=== PATIENT | male | born 1985 | race Caucasian/White ===

== ENCOUNTER 2017-10-09 12:52 | Emergency (ER) | payer MEDICAID ==
[~2017-10-09] VITALS: Ht 154.9 cm; Wt 109.0 kg
[2017-10-09 14:46] LABS: BASOPHILS # (AUTO) 0.02 x10^3/uL (0-0.1); BASOPHILS % (AUTO) 0 % (0-1); EOSINOPHILS # (AUTO) 0.04 x10^3/uL (0-0.4); EOSINOPHILS % (AUTO) 1 % (1-7); LYMPHOCYTES % (AUTO) 28 % (22-44); MD NO; MEAN CORPUSCULAR HEMOGLOBIN 28.9 pg (27.5-34.5); MEAN CORPUSCULAR HGB CONC 33.6 g/dL (33.2-36.2); MEAN CORPUSCULAR VOLUME 85.9 fL (81-97); MEAN PLATELET VOLUME 7.8 fL (7.4-10.4); MONOCYTES # (AUTO) 0.35 x10^3/uL (0.2-0.8); MONOCYTES % (AUTO) 6 % (2-9); NEUTROPHILS # (AUTO) 4.05 x10^3/uL (1.8-6.8); NEUTROPHILS % (AUTO) 66 % (42-75); PLATELET COUNT 271 x10^3/uL (130-400); RED BLOOD COUNT 5.29 x10^6/uL (4.38-5.82); RED CELL DISTRIBUTION WIDTH 13.4 % (9.4-14.8)
[2017-10-09 14:53] LABS: CHLORIDE 105 mmol/L (98-107)
[2017-10-09 14:54] LABS: ALBUMIN 3.8 g/dL (3.4-5.0); ANION GAP 7 mmol/L (5-15); CREATININE 0.87 mg/dL (0.7-1.3)
[2017-10-09 14:58] LABS: TROPONIN I < 0.015 ng/mL (0.000-0.045)
[2017-10-09 16:10] VITALS: BP 118/77
== END 2017-10-09 16:37 | disposition home or self-care (01) ==
LOC: ED 16:31
DX: R07.89 Other chest pain (principal); R00.2 Palpitations
CPT/HCPCS: 36415; 71045; 80048; 82040; 84484; 85025; 93005; 99285

== ENCOUNTER 2017-10-12 19:14 | Emergency (ER) | payer MEDICAID ==
[~2017-10-12] VITALS: Ht 180.3 cm; Wt 110.2 kg
[2017-10-12] MEDS ORDERED: ATEN25TA PO (19:36)
[2017-10-12] MEDS ORDERED: ASPI-496 PO (19:36)
[2017-10-12] MEDS ORDERED: RANI150T23 PO (19:37)
[2017-10-12 19:59] LABS: ALBUMIN 4.2 g/dL (3.4-5.0); ANION GAP 8 mmol/L (5-15); CHLORIDE 103 mmol/L (98-107); CREATININE 0.84 mg/dL (0.7-1.3)
[2017-10-12 20:02] LABS: TROPONIN I < 0.015 ng/mL (0.000-0.045)
[2017-10-12 20:11] LABS: BASOPHILS # (AUTO) 0.03 x10^3/uL (0-0.1); BASOPHILS % (AUTO) 0 % (0-1); EOSINOPHILS # (AUTO) 0.01 x10^3/uL (0-0.4); EOSINOPHILS % (AUTO) 0 % (1-7); LYMPHOCYTES # (AUTO) 3.22 x10^3/uL (1-3.4); LYMPHOCYTES % (AUTO) 41 % (22-44); MD NO; MEAN CORPUSCULAR HGB CONC 33.6 g/dL (33.2-36.2); MEAN CORPUSCULAR VOLUME 86.2 fL (81-97); MEAN PLATELET VOLUME 7.9 fL (7.4-10.4); MONOCYTES # (AUTO) 0.48 x10^3/uL (0.2-0.8); MONOCYTES % (AUTO) 6 % (2-9); NEUTROPHILS # (AUTO) 4.14 x10^3/uL (1.8-6.8); NEUTROPHILS % (AUTO) 53 % (42-75); PLATELET COUNT 294 x10^3/uL (130-400); RED BLOOD COUNT 4.92 x10^6/uL (4.38-5.82); RED CELL DISTRIBUTION WIDTH 12.7 % (9.4-14.8)
[2017-10-12] MEDS ORDERED: MAALOX/HYOSCYAMINE/LIDOCAINE 45 ML BTL PO ONE (20:30)
[2017-10-12] MEDS ORDERED: MAALOX/HYOSCYAMINE/LIDOCAINE 45 ML BTL ONE (21:03)
[2017-10-12 21:14] LABS: FREE T4 (FREE THYROXINE) 1.1 ng/dL (0.76-1.46); THYROID STIMULATING HORMONE 1.77 mIU/L (0.358-3.740)
[2017-10-12 22:38] VITALS: BP 132/78
== END 2017-10-12 22:40 | disposition home or self-care (01) ==
LOC: ED 19:42
DX: R07.89 Other chest pain (principal); R09.81 Nasal congestion; R06.02 Shortness of breath; K59.00 Constipation, unspecified; R10.9 Unspecified abdominal pain
CPT/HCPCS: 36415; 71046; 80048; 82040; 83690; 83735; 84439; 84443; 84484; 85025; 86677; 93005; 99285; Q0177